=== PATIENT | female | born 1980 | race Caucasian/White ===

== ENCOUNTER 2016-09-07 09:20 | Emergency (ER) | payer OTHER ==
[2016-09-07] MEDS ORDERED: NORMAL SALINE 10 ML SYRINGE FLUSH IVP PRN (09:33)
[2016-09-07] MEDS ORDERED: KETOROLAC 15 MG/1 ML VIAL IVP ONE (09:33)
[2016-09-07] MEDS ORDERED: DEXAMETHASONE SOD PHOSPHATE 4 MG/1 ML VIAL IV ONE (09:33)
[2016-09-07 09:37] VITALS: RESP 18; TEMP 96.7
[2016-09-07] MEDS ORDERED: ONDANSETRON 4 MG/2 ML VIAL IVP ONE (09:38)
--- NOTE | 2016-09-07 09:38 | PDOC ---
Sore Throat/Dental Pain HPI - General Chief Complaint: Sore Throat Stated Complaint: sore throat Date Seen by Provider: 09/07/16 Time Seen by Provider: 09:30 Source: POSITIVE: Patient Exam Limitations: POSITIVE: No limitations Nurse's Notes Reviewed & Considered: Yes - History of Present Illness Initial Comments: Kathy is a 36-year-old female who presents to the emergency department for evaluation of a sore throat. Patient reports her symptoms started on Saturday. She was seen in clinic on Saturday. She had been started on Augmentin after a negative strep test. She reports her symptoms are getting worse. Pain is worse with swallowing. No relieving factors. No radiation. And moderate to severe in overall severity. It has been associated with fevers. Patient reports that her temperature has been up to 102. Patient does get chills and sweats. Positive nausea no vomiting. She has had a minimal cough. She does feel swelling in her throat. Denies abdominal pain. - Patient Home Medications Home Medications: Home Medications Effexor 1 QAM 05/02/10 Amoxicillin/Potassium Clav [Augmentin 875-125 Tablet] 1 tab PO BID #20 tab 09/05 Ketorolac Tromethamine [Toradol] 10 mg PO Q6H PRN #15 tablet 09/07/16 - Patient Allergies Allergies/Adverse Reactions: Allergies Allergy/AdvReac Type Severity Reaction Status Date / Time No Known Allergies Allergy Unverified 09/05/16 14:59 Past Medical History - heen HEENT History: Denies History Cardiovascular History: Denies History Respiratory History: Denies History Gastrointestinal History: Denies History Genitourinary History: Denies History Endocrine History: Denies History Musculoskeletal History: Denies History Neurological History: Denies History Blood Disorders: Denies History Psychiatric History: Depression History of Sexually Transmitted Diseases: No Cancer History: Denies History History of Other Communicable Diseases: No Alcohol Use: None Substance Use Type: None Anesthesia Reactions: No Malignant Hyperthermia: No Significant Family History: No pertinent family hx Past Medical History Reviewed: Reviewed - No Changes ROS - Limitations ROS Limitations: No Limitations Constitution: REPORTS: Chills, Fever Cardiovascular: REPORTS: Denies Cardiac Symptoms Respiratory: REPORTS: Other (Minimal nonproductive cough) Neurological: DENIES: Headache Gastrointestinal: REPORTS: Nausea. DENIES: Abdominal Pain, Vomitting Endocrine: REPORTS: Fatigue Musculoskeletal: REPORTS: Neck Pain ENT: REPORTS: Sore Throat Skin: DENIES: Rash Lympathic: REPORTS: Swollen Glands Sore Throat/Dental Pain Exam - General Appearance General Appearance: REPORTS: Alert, Cooperative - HEENT Head / Face: POSITIVE: Atraumatic Eyes: POSITIVE: Inspection Normal Nose: POSITIVE: Inspection Normal Oropharynx: POSITIVE: Other (Posterior pharynx is erythematous. There is no asymmetry to suggest abscess. She does have exudates.) Neck: POSITIVE: Lymphadenopathy - Respiratory Respiratory: REPORTS: No Respiratory Distress, Breath Sounds Normal, Speaks Full Sentences - Cardiovascular Cardiovascular: REPORTS: Regular Rate and Rhythm, Heart Sounds Normal, Equal Pulses - Abdomen Abdomen: Denies Tenderness: (LUQ) (minimal discomfort to palpation of the left upper quadrant. Difficult to assess spleen size secondary to obesity) - Extremities Additional Extremities Details: No edema in the lower extremities bilaterally. - Skin Skin: REPORTS: Warm, Dry, No Rash - Neurological / Psychological Neurological: POSITIVE: Affect Apporpriate Sore Throat/Dental Progress - Results Reviewed by me Lab Results Reviewed: Yes Lab Results:: Laboratory Results 09/07/16 Range/Units 09:40 Monoscreen Negative (NEG) - Patient's Progress Pain Medication Addressed: POSITIVE: Yes MDM / ED Course: Kathy is a 36-year-old female who presents to the emergency department for evaluation of a sore throat. Her vital signs are unremarkable and examination does demonstrate exudative tonsillitis with anterior submandibular lymphadenopathy. She'll diagnosis includes but is not limited to strep throat, tonsillitis, mononucleosis. There is no examination findings to suggest development of an abscess at this time. Patient's rapid strep was negative. Throat culture has been sent. Patient was treated here with Toradol and dexamethasone. Patient's Monospot was negative here. Throat culture is still pending. On reevaluation she was feeling better. She was given a bolus of normal saline. Given she is still early in her course this may still be mononucleosis. I will have her continue her antibiotics and follow up with her primary care provider. Patient was also given a prescription of Toradol to help with discomfort. Patient Care Time - Estimated PCT Patient Care Time (In Minutes): 25 Vital Signs - Recent Vital Signs Vital Signs: Vital Signs (Last 8 hours) Temp Pulse Resp BP Pulse Ox 09/07/16 09:26 96.7 F L 105 H 18 111/93 93 - VS Reviewed Vital Signs Reviewed: Yes Discharge Clinical Impression: Acute tonsillitis Qualifiers: Pharyngitis/tonsillitis etiology: unspecified etiology Qualifier Code: (J03.90 ) Acute tonsillitis, unspecified Discharge Disposition: Discharged to Home Condition: Good Prescriptions / Orders: Ketorolac Tromethamine [Toradol] 10 mg PO Q6H PRN #15 tablet PRN Reason: Pain Patient Instructions Given at Discharge: Tonsillitis (ED) Additional Instructions: Thank you for coming to the emergency department. Your rapid strep and mono tests were negative. Your culture is still pending. Please continue your antibiotics. Use Toradol as needed to help with pain. Do not take additional ibuprofen with this medication. Please follow-up with your primary provider if not improving in the next few days. Return to the emergency department for any worsening symptoms.
[2016-09-07] MEDS ORDERED: Sodium Chloride 0.9% 1,000 ML ONE (09:42)
[2016-09-07] MEDS ORDERED: ONDANSETRON 4 MG/2 ML VIAL ONE (09:42)
[2016-09-07] MEDS ORDERED: NORMAL SALINE 1000 ML IV SCH (10:00)
== END 2016-09-07 10:30 | disposition home or self-care (01) ==
LOC: ER 09:20
DX: J03.90 Acute tonsillitis, unspecified (principal); R50.9 Fever, unspecified; R05 Cough
CPT/HCPCS: 86308; 87070; 87802; 96374; 96375; 99282; 99283; J1100; J1885; J2405; J7030

== ENCOUNTER 2016-09-10 03:16 | Inpatient (IN) | payer OTHER ==
[2016-09-10] MEDS ORDERED: NORMAL SALINE 10 ML SYRINGE FLUSH IVP PRN (03:34)
[2016-09-10] MEDS ORDERED: KETOROLAC 15 MG/1 ML VIAL IVP ONE (03:34)
[2016-09-10] MEDS ORDERED: Sodium Chloride 0.9% 1,000 ML PRIMARY IV ONE (03:34)
[2016-09-10] MEDS ORDERED: ONDANSETRON 4 MG/2 ML VIAL IVP ONE (03:34)
[2016-09-10] MEDS ORDERED: DEXAMETHASONE PF 10 MG/1 ML VIAL IVP ONE (03:37)
--- NOTE | 2016-09-10 03:46 | PDOC ---
Sore Throat/Dental Pain HPI - General Chief Complaint: Sore Throat Stated Complaint: SEVERE SORE THROAT/SWELLING/PAINFUL SWALLOWING Date Seen by Provider: 09/10/16 Time Seen by Provider: 03:30 Source: POSITIVE: Patient Exam Limitations: POSITIVE: No limitations Nurse's Notes Reviewed & Considered: Yes - History of Present Illness Initial Comments: The patient is a 36-year-old female who presents to the emergency department with worsening sore throat. She states that she developed sore throat about a week ago. She was seen at the walk-in clinic on Saturday and diagnosed with exudative tonsillitis and started on Augmentin. Her strep screen was negative at that time. She did not have any improvement after initiation with antibiotics in her throat seemed to be getting worse so she came to the emergency department on Saturday last week. Repeat strep test was negative and Newberry screen was negative. She received IV fluids as well as IV Toradol and Decadron and was feeling better. She was discharged home on Toradol with continuation of Augmentin. She states over the past couple of days her throat seems to have gotten worse. She is not able to eat or drink much of anything at all secondary to the pain. The Toradol does not seem to be helping at all. She feels like the swelling has gotten worse in her neck. She denies any cough , nausea or vomiting, abdominal pain or any other associated symptoms. She is unsure about fever however has had chills at home. - Patient Home Medications Home Medications: Home Medications Effexor 1 tab PO QAM 05/02/10 Amoxicillin/Potassium Clav [Augmentin 875-125 Tablet] 1 tab PO BID #20 tab 09/05 Ketorolac Tromethamine [Toradol] 10 mg PO Q6H PRN #15 tablet 09/07/16 - Patient Allergies Allergies/Adverse Reactions: Allergies Allergy/AdvReac Type Severity Reaction Status Date / Time No Known Allergies Allergy Verified 09/10/16 03:21 Past Medical History - heen HEENT History: Denies History Cardiovascular History: Denies History Respiratory History: Denies History Gastrointestinal History: Denies History Genitourinary History: Denies History Endocrine History: Denies History Musculoskeletal History: Denies History Prosthesis or Implant: No Neurological History: Denies History Blood Disorders: Denies History Psychiatric History: Depression History of Sexually Transmitted Diseases: No Female Reproductive History: Denies History Obstetrical History: Denies History Cancer History: Denies History In Past Year Been Physically Harmed or Verbally Threatened: No History of MDRO: No History of Other Communicable Diseases: No Tobacco Use: Former Smoker Alcohol Use: None Substance Use Type: None Previous Surgical History: No Anesthesia Reactions: No Malignant Hyperthermia: No Significant Family History: No pertinent family hx Past Medical History Reviewed: Reviewed - No Changes ROS - Limitations ROS Limitations: No Limitations Constitution: REPORTS: Chills Cardiovascular: REPORTS: Denies Cardiac Symptoms Respiratory: REPORTS: Denies Resp Symptoms Neurological: REPORTS: Denies Neuro Symptoms Gastrointestinal: REPORTS: Denies GI Symptoms Musculoskeletal: REPORTS: Denies MS Symptoms Eyes: REPORTS: Denies Symptoms ENT: REPORTS: Sore Throat, Trouble Swallowing. DENIES: Congestion Skin: REPORTS: Rash (She had a little bit of a rash when her illness first started which seems to have resolved) Sore Throat/Dental Pain Exam - General Appearance General Appearance: REPORTS: Alert, Cooperative, Other (She does appear ill and clinically dehydrated on arrival) - HEENT Head / Face: POSITIVE: No Facial Swelling Eyes: POSITIVE: Inspection Normal Ears: POSITIVE: Ears Normal Inspection Nose: POSITIVE: Inspection Normal Oropharynx: POSITIVE: Other (Examination of the posterior oropharynx reveals tonsils which are enlarged and erythematous, there is white exudates noted on the uvula and tonsils) Neck: POSITIVE: Supple, Other (She does have marked cervical lymphadenopathy bilaterally) - Respiratory Respiratory: REPORTS: No Respiratory Distress, Breath Sounds Normal - Cardiovascular Cardiovascular: REPORTS: Regular Rate and Rhythm, Heart Sounds Normal - Abdomen Abdomen: Soft: (All Quadrants), Denies Tenderness: (All Quadrants), No Distention: (All Quadrants) - Extremities Extremity: Normal ROM: (All Extremities), Normal Inspection: (All Extremities) - Skin Skin: REPORTS: Intact, No Rash - Neurological / Psychological Neurological: POSITIVE: Oriented X3, Motor Normal, Sensation Normal Sore Throat/Dental Progress - Results Reviewed by me Xrays/CTs/US Reviewed by me: Yes Discussed with Radiologist: Yes Radiology Findings: CT soft tissue neck with IV contrast reveals tonsillar enlargement without any evidence of abscess, cervical lymphadenopathy, no other acute findings per radiologist. Lab Results Reviewed: Yes Lab Results:: Laboratory Results 09/10/16 Range/Units 03:54 WBC 5.92 (4.8-10.8) 10^3/uL RBC 4.84 (4.20-5.40) 10^6/uL Hgb 14.9 (12.0-16.0) g/dL Hct 42.8 (37.0-47.0) % MCV 88.4 (81-99) FL MCH 30.8 (27-31) PG MCHC 34.8 (33-37) g/dL RDW Std Deviation 39.8 (39-50) fL RDW Coeff of Doreen 12.4 (11.5-14.5) % Plt Count 252 (140-350) 10*3/uL MPV 9.7 (7.4-12.2) FL Immature Gran % (Auto) 0.2 (0-5) % Neut % (Auto) 47.7 L (50-80) % Lymph % (Auto) 33.4 (10-50) % Newberry % (Auto) 14.5 (5-15) % Eos % (Auto) 1.2 (0-8) % Baso % (Auto) 3.0 H (0-1) % Immature Gran # (Auto) 0.01 10*3/UL Neut # (Auto) 2.82 10*3/UL Lymph # (Auto) 1.98 10*3/uL Newberry # (Auto) 0.86 H (0.3-0.8) 10*3/UL Eos # (Auto) 0.07 10*3/UL Baso # (Auto) 0.18 10*3/UL WBC Morphology Comment Normal morphology (NORM) Plt Morphology Comment Normal morphology (NORM) RBC Morph Comment Normal morphology (NORM) Sodium 135 (135-145) meq/L Potassium 3.4 L (3.8-5.2) meq/L Chloride 99 (98-112) meq/L Carbon Dioxide 24 (23-33) meq/L Anion Gap 12 (5-20) BUN 9 (7-22) mg/dL Creatinine 0.7 (0.50-1.20) mg/dL Estimated GFR > 60 (>60 ml/min/1.73m(2)) BUN/Creatinine Ratio 12.85 (6-20) Glucose 102 (78-110) mg/dL Calculated Osmolality 278.0 (267-292) mOsm/kg Lactic Acid 0.9 (0.70-2.10) MMOL/L Calcium 8.6 L (8.7-10.7) mg/dL Total Bilirubin 0.7 (0.3-1.2) mg/dL AST 24 (8-39) IU/L ALT 26 (9-52) IU/L Alkaline Phosphatase 66 (38-126) IU/L C-Reactive Protein 8.9 H (0.0-0.9) mg/dL Total Protein 7.6 (6.1-8.0) g/dL Albumin 3.9 (3.5-4.8) g/dL Globulin 3.7 (2.50-4.10) g/dL Albumin/Globulin Ratio 1.00 L (1.3-2.0) mg/g Serum HCG, Qual Negative - Patient's Progress MDM / ED Course: Shortly after arrival an IV was established, blood cultures and lactate were obtained with IV start. She received 1 L bolus of normal saline as well as Toradol 15 mg IV, Decadron 8 mg IV, morphine 2 mg IV and Zofran 4 mg IV. She did not really have much pain relief and was given a second dose of morphine. This helped some however her oxygen saturations dropped and she was placed on oxygen. CT soft tissue neck shows enlarged tonsils without any evidence of abscess, associated cervical lymphadenopathy per radiologist. The patient appears to have tonsillitis with associated dehydration. She was given Rocephin 2 g IV. She is still miserable despite medications and fluids here and decision was made to admit for continued treatment and hydration. The patient was in agreement with this plan and Dr. Menard has agreed to admit the patient. - Consult Counseled: POSITIVE: Patient, RE: Lab Results, RE: Radiology Results, RE: DX Patient Care Time - Estimated PCT Patient Care Time (In Minutes): 35 Vital Signs - Recent Vital Signs Vital Signs: Vital Signs (Last 8 hours) Temp Pulse Pulse Resp BP BP BP 09/10/16 07:08 97.8 F 84 18 177/102 09/10/16 07:00 84 09/10/16 06:45 97.0 F 86 18 133/92 09/10/16 03:32 95.5 F L 99 20 147/107 09/10/16 03:23 95.5 F L 99 20 147/107 Pulse Ox 09/10/16 07:08 94 09/10/16 07:00 09/10/16 06:45 96 09/10/16 03:32 94 09/10/16 03:23 94 - VS Reviewed Vital Signs Reviewed: Yes Discharge Clinical Impression: Acute infective tonsillitis, Dehydration Discharge Disposition: Admit to Observation Condition: Fair
[2016-09-10] MEDS: MORPHINE SULFATE 2 MG/1 ML IVP ONE ×2 (03:53→04:48)
[2016-09-10 04:00] LABS: HEMOGLOBIN 14.9 g/dL (12.0-16.0); MEAN CORPUSCULAR HEMOGLOBIN 30.8 PG (27-31); MEAN PLATELET VOLUME 9.7 FL (7.4-12.2); MONOCYTES % (AUTO) 14.5 % (5-15); RED BLOOD COUNT 4.84 10^6/uL (4.20-5.40)
[2016-09-10 04:08] LABS: BLOOD UREA NITROGEN 9 mg/dL (7-22); BUN/CREATININE RATIO 12.85 (6-20); C-REACTIVE PROTEIN 8.9 mg/dL (0.0-0.9); CALCIUM 8.6 mg/dL (8.7-10.7); EST GLOMERULAR FILTRATION > 60 (>60 ml/min/1.73m(2)); SERUM ALBUMIN 3.9 g/dL (3.5-4.8)
[2016-09-10 04:09] LABS: BASOPHILS # (AUTO) 0.18 10*3/UL; EOSINOPHILS # (AUTO) 0.07 10*3/UL; EOSINOPHILS % (AUTO) 1.2 % (0-8); HEMATOCRIT 42.8 % (37.0-47.0); LYMPHOCYTES # (AUTO) 1.98 10*3/uL; MEAN CORPUSCULAR HGB CONC 34.8 g/dL (33-37); MEAN CORPUSCULAR VOLUME 88.4 FL (81-99); MONOCYTES # (AUTO) 0.86 10*3/UL (0.3-0.8); NEUTROPHILS # (AUTO) 2.82 10*3/UL; NEUTROPHILS % (AUTO) 47.7 % (50-80)
[2016-09-10 04:40] LABS: PLATELET MORPHOLOGY COMMENT NORMAL MORPHOLOGY (NORM); RBC MORPHOLOGY COMMENT NORMAL MORPHOLOGY (NORM); WBC MORPHOLOGY COMMENT NORMAL MORPHOLOGY (NORM)
[2016-09-10] MEDS ORDERED: MORPHINE SULFATE 4 MG/1 ML IVP ONE (04:43)
--- NOTE | 2016-09-10 05:22 | DI ---
HISTORY: Sore throat. TECHNIQUE: Contiguous axial images of the soft tissues of the neck were obtained and submitted for i nterpretation. FINDINGS: Bilateral tonsilar enlargement and airway narrowing suggestive of acute tonsillitis. No abs cess. Cervical chain adenopathy. Likely reactive however lymphoproliferative disease can have a similar dereck ology. IMPRESSION: 1. Bilateral tonsilar enlargement and airway narrowing suggestive of acute tonsillitis. No abscess. 2. Cervical chain adenopathy. Likely reactive however lymphoproliferative disease can have a similar etiology.
[2016-09-10] MEDS ORDERED: cefTRIAXone Inj 2 GM in Sodium Chloride 0.9% 100 ML IV ONE (05:49)
[2016-09-10] MEDS ORDERED: LIDOCAINE W/ SODIUM BICARB 0.5 ML SYR SUBD PRN (06:51)
[2016-09-10] MEDS ORDERED: ONDANSETRON 4 MG/2 ML VIAL IVP PRN (06:51)
[2016-09-10] MEDS: NORMAL SALINE 10 ML SYRINGE FLUSH IVP PRN (08:34)
--- NOTE | 2016-09-10 10:02 | PDOC ---
History and Physical - History of Present Illness History of Present Illness: This very nice 36-year-old female who developed some throat discomfort about a week ago with fevers off and on throughout the week. Things got worse with increased swelling of her tonsils and white plaques was started on Augmentin by primary care physician. Things continued to deteriorate where she almost could not swallow anymore and increased pain with decrease the by mouth intake of solids and fluids. Was seen in the ER this morning. Her strep screen was negative and the primary care's office repeat strep test was negative and Ida screen was negative. She received the Decadron and IV Toradol continued to get worse and comes back to the ER. Patient is admitted for dehydration and tonsillitis. Past Medical History Medical History: Depression Tobacco Use: Former Smoker Substance Use Type: None Medication / Allergies Home Medications: Home Medications Medication Instructions Recorded Confirmed Type Effexor 1 tab PO QAM 05/02/10 09/10/16 History Amoxicillin/Potassium Clav 1 tab PO BID #20 tab 09/05/16 09/10/16 Clinic [Augmentin 875-125 Tablet] Ketorolac Tromethamine [Toradol] 10 mg PO Q6H PRN #15 tablet 09/07/16 09/10/16 Rx Allergies/Adverse Reactions: Allergies Allergy/AdvReac Type Severity Reaction Status Date / Time No Known Allergies Allergy Verified 09/10/16 03:21 Review of Systems - Review of Systems All Systems: Reviewed & No Additional Complaints Except as Stated - Mouth/Throat Mouth/Throat Exam: REPORTS: Sore Throat Exam - Vitals Vital Signs: Vital Signs Temperature 97.8 F Temperature Source Temporal Artery Scan Pulse Rate [Pulse Oximeter] 84 Pulse Rate 84 Respiratory Rate 18 Blood Pressure [Right Radial 177/102 Artery] Blood Pressure 133/92 Pulse Ox 94 Oxygen Delivery Method Room Air Height 5 ft 8 in Weight 118.388 kg - General General Appearance: POSITIVE: Mild Distress - Head Head Exam: POSITIVE: Normocephalic, Atraumatic - ENT Additonal ENT Exam Details: Swollen tonsils with white plaque - Neck Neck Exam: POSITIVE: Lymphadenopathy - Respiratory Respiratory Exam: POSITIVE: Clear to Auscultation - Bilaterally, Breathing Non Labored, Normal To Percussion - Cardiovascular Cardiovascular Exam: POSITIVE: RRR, No Murmur, No Clicks, No Gallops - GI/Abdominal GI/Abdominal Exam: POSITIVE: Normal Bowel Sounds, Non Tender, Non Distended, Soft - Extremities Extremities Exam: POSITIVE: No Clubbing Present, No Edema Present, No Cyanosis Present - Neurological Neurological Exam: POSITIVE: Alert, CN II-XII Intact, No Facial Droop, Speech Intact / Clear Results - Labs CBC and BMP: 09/10/16 03:54 09/10/16 03:54 Assessment and Plan - Patient Problems (1) Acute infective tonsillitis Current Visit: Yes Status: Acute Comment: Check serum for Ida no atypical lymphocytes on CBC. Discuss case with you nose and throat at this point recommended Decadron which she received in the ER Medrol Dosepak and IV Unasyn most likely follow-up as outpatient with the ear nose and throat physician. (2) Dehydration Current Visit: Yes Status: Acute Comment: IV fluids with potassium (3) Hypokalemia Current Visit: Yes Status: Acute
[2016-09-10] MEDS: Ampicillin/Sulbactam Inj 3 GM in Sodium Chloride 0.9% 100 ML IV SCH ×3 (11:42→23:16)
[2016-09-10] MEDS: KETOROLAC 15 MG/1 ML VIAL IVP PRN ×2 (11:43→18:31)
[2016-09-11] MEDS: KETOROLAC 15 MG/1 ML VIAL IVP PRN ×3 (00:45→17:34)
[2016-09-11] MEDS: Ampicillin/Sulbactam Inj 3 GM in Sodium Chloride 0.9% 100 ML IV SCH ×4 (04:46→23:23)
[2016-09-11 05:29] LABS: HEMATOCRIT 38.1 % (37.0-47.0); HEMOGLOBIN 13.3 g/dL (12.0-16.0); MEAN CORPUSCULAR HGB CONC 34.9 g/dL (33-37); MEAN CORPUSCULAR VOLUME 88.8 FL (81-99); MEAN PLATELET VOLUME 9.6 FL (7.4-12.2); RED BLOOD COUNT 4.29 10^6/uL (4.20-5.40)
[2016-09-11 05:32] LABS: BLOOD UREA NITROGEN 6 mg/dL (7-22); CALCIUM 8.2 mg/dL (8.7-10.7); EST GLOMERULAR FILTRATION > 60 (>60 ml/min/1.73m(2)); SERUM ALBUMIN 3.3 g/dL (3.5-4.8)
[2016-09-11 05:53] LABS: PLATELET MORPHOLOGY COMMENT NORMAL MORPHOLOGY (NORM); RBC MORPHOLOGY COMMENT NORMAL MORPHOLOGY (NORM); WBC MORPHOLOGY COMMENT NORMAL MORPHOLOGY (NORM)
[2016-09-11 05:54] LABS: BAND NEUTROPHILS % 2 % (0-10); BASOPHILS % (MANUAL) 0 % (0-1); EOSINOPHILS % (MANUAL) 0 % (0-8); LYMPHOCYTES % (MANUAL) 57 % (10-50); MONOCYTES % (MANUAL) 7 % (0-12); NEUTROPHILS % (MANUAL) 34 % (50-80)
[2016-09-11] MEDS ORDERED: METHYLPREDNISOLONE 4 MG TAB DOSE PACK PO SCH (09:00)
[2016-09-11] MEDS: AmLODIPine Tab 5 MG TABLET PO SCH (09:13)
[2016-09-11] MEDS: NORMAL SALINE 10 ML SYRINGE FLUSH IVP PRN ×2 (09:20→17:34)
--- NOTE | 2016-09-11 11:44 | PDOC(PROG) ---
Interval History: Patient is doing a little better swelling is improved still having difficulty with by mouth intake pain and elevated blood pressure denies shortness of breath Objective : Data - Labs CBC and BMP: 09/11/16 04:55 09/11/16 04:55 Labs - Last 24 Hours: Laboratory Results 09/11/16 Range/Units 04:55 WBC 5.51 (4.8-10.8) 10^3/uL RBC 4.29 (4.20-5.40) 10^6/uL Hgb 13.3 (12.0-16.0) g/dL Hct 38.1 (37.0-47.0) % MCV 88.8 (81-99) FL MCH 31.0 (27-31) PG MCHC 34.9 (33-37) g/dL RDW Std Deviation 39.3 (39-50) fL RDW Coeff of Doreen 12.3 (11.5-14.5) % Plt Count 268 (140-350) 10*3/uL MPV 9.6 (7.4-12.2) FL Neutrophils % (Manual) 34 L (50-80) % Band Neutrophils % 2 (0-10) % Lymphocytes % (Manual) 57 H (10-50) % Monocytes % (Manual) 7 (0-12) % Eosinophils % (Manual) 0 (0-8) % Basophils % (Manual) 0 (0-1) % Metamyelocytes % Not Reportable Myelocytes % Not Reportable Promyelocytes % Not Reportable Blast Cells Not Reportable WBC Morphology Comment Normal morphology (NORM) Plt Morphology Comment Normal morphology (NORM) RBC Morph Comment Normal morphology (NORM) Sodium 136 (135-145) meq/L Potassium 3.5 L (3.8-5.2) meq/L Chloride 103 (98-112) meq/L Carbon Dioxide 24 (23-33) meq/L Anion Gap 9 (5-20) BUN 6 L (7-22) mg/dL Creatinine 0.6 (0.50-1.20) mg/dL Estimated GFR > 60 (>60 ml/min/1.73m(2)) BUN/Creatinine Ratio 10.00 (6-20) Glucose 99 (78-110) mg/dL Calculated Osmolality 279.0 (267-292) mOsm/kg Calcium 8.2 L (8.7-10.7) mg/dL Total Bilirubin 0.4 (0.3-1.2) mg/dL AST 20 (8-39) IU/L ALT 23 (9-52) IU/L Alkaline Phosphatase 54 (38-126) IU/L Total Protein 6.7 (6.1-8.0) g/dL Albumin 3.3 L (3.5-4.8) g/dL Globulin 3.4 (2.50-4.10) g/dL Albumin/Globulin Ratio 0.90 L (1.3-2.0) mg/g Objective : Exam - General General Appearance: Cooperative - ENT Additonal ENT Exam Details: Tonsils look less swollen and less plaque less tender on palpation of her submandibular nodes - Respiratory Respiratory Exam: Clear to Auscultation - Bilaterally, Breathing Non Labored, Normal To Percussion - Cardiovascular Cardiovascular Exam: No Murmur, No Clicks, No Gallops Assessment and Plan - Patient Problems (1) Acute infective tonsillitis Current Visit: Yes Status: Acute Comment: Continue Clinda slight improvement decrease in swelling continue also Medrol Dosepak patient is scheduled to go see ENT on in September as an outpatient Dr. Jake gonzalez (2) Dehydration Current Visit: Yes Status: Acute Comment: Resolved (3) Hypokalemia Current Visit: Yes Status: Acute Comment: Continue replacement
[2016-09-11] MEDS: METHYLPREDNISOLONE 4 MG TAB DOSE PACK(DAY 1-3 1730) PO SCH (19:06)
[2016-09-11] MEDS: METHYLPREDNISOLONE 4 MG TAB DOSE PACK(DAY 1-2 2100) PO SCH (21:08)
[2016-09-12] MEDS: NORMAL SALINE 10 ML SYRINGE FLUSH IVP PRN ×2 (00:02→05:32)
[2016-09-12] MEDS: KETOROLAC 15 MG/1 ML VIAL IVP PRN ×5 (00:02→23:19)
[2016-09-12] MEDS: Ampicillin/Sulbactam Inj 3 GM in Sodium Chloride 0.9% 100 ML IV SCH ×4 (04:41→23:18)
[2016-09-12 05:46] LABS: HEMOGLOBIN 14.4 g/dL (12.0-16.0); MEAN CORPUSCULAR HEMOGLOBIN 30.4 PG (27-31); MEAN CORPUSCULAR HGB CONC 34.3 g/dL (33-37); MEAN CORPUSCULAR VOLUME 88.6 FL (81-99); MEAN PLATELET VOLUME 9.8 FL (7.4-12.2); RED BLOOD COUNT 4.74 10^6/uL (4.20-5.40)
[2016-09-12 05:59] LABS: BLOOD UREA NITROGEN 7 mg/dL (7-22); CALCIUM 8.7 mg/dL (8.7-10.7); EST GLOMERULAR FILTRATION > 60 (>60 ml/min/1.73m(2)); SERUM ALBUMIN 3.6 g/dL (3.5-4.8)
[2016-09-12 06:21] LABS: PLATELET MORPHOLOGY COMMENT NORMAL MORPHOLOGY (NORM); RBC MORPHOLOGY COMMENT NORMAL MORPHOLOGY (NORM); WBC MORPHOLOGY COMMENT SEE COMMENTS (NORM)
[2016-09-12 06:24] LABS: BAND NEUTROPHILS % 4 % (0-10); BASOPHILS % (MANUAL) 0 % (0-1); EOSINOPHILS % (MANUAL) 1 % (0-8); LYMPHOCYTES % (MANUAL) 35 % (10-50); MONOCYTES % (MANUAL) 6 % (0-12); NEUTROPHILS % (MANUAL) 54 % (50-80)
--- NOTE | 2016-09-12 09:35 | PDOC(PROG) ---
Interval History: Patient is improving with by mouth fluid and solid intake still painful when going home that she is unable to eat enough or drink. Antibiotics apparently are working very well Objective : Data - Labs CBC and BMP: 09/12/16 04:47 09/12/16 04:47 Labs - Last 24 Hours: Laboratory Results 09/12/16 Range/Units 04:47 WBC 6.71 (4.8-10.8) 10^3/uL RBC 4.74 (4.20-5.40) 10^6/uL Hgb 14.4 (12.0-16.0) g/dL Hct 42.0 (37.0-47.0) % MCV 88.6 (81-99) FL MCH 30.4 (27-31) PG MCHC 34.3 (33-37) g/dL RDW Std Deviation 39.8 (39-50) fL RDW Coeff of Doreen 12.4 (11.5-14.5) % Plt Count 343 (140-350) 10*3/uL MPV 9.8 (7.4-12.2) FL Neutrophils % (Manual) 54 (50-80) % Band Neutrophils % 4 (0-10) % Lymphocytes % (Manual) 35 (10-50) % Monocytes % (Manual) 6 (0-12) % Eosinophils % (Manual) 1 (0-8) % Basophils % (Manual) 0 (0-1) % Metamyelocytes % Not Reportable Myelocytes % Not Reportable Promyelocytes % Not Reportable Blast Cells Not Reportable WBC Morphology Comment See comments (NORM) Plt Morphology Comment Normal morphology (NORM) RBC Morph Comment Normal morphology (NORM) Sodium 139 (135-145) meq/L Potassium 3.8 (3.8-5.2) meq/L Chloride 102 (98-112) meq/L Carbon Dioxide 25 (23-33) meq/L Anion Gap 12 (5-20) BUN 7 (7-22) mg/dL Creatinine 0.7 (0.50-1.20) mg/dL Estimated GFR > 60 (>60 ml/min/1.73m(2)) BUN/Creatinine Ratio 10.00 (6-20) Glucose 108 (78-110) mg/dL Calculated Osmolality 286.0 (267-292) mOsm/kg Calcium 8.7 (8.7-10.7) mg/dL Total Bilirubin 0.4 (0.3-1.2) mg/dL AST 15 (8-39) IU/L ALT 23 (9-52) IU/L Alkaline Phosphatase 58 (38-126) IU/L Total Protein 7.5 (6.1-8.0) g/dL Albumin 3.6 (3.5-4.8) g/dL Globulin 3.9 (2.50-4.10) g/dL Albumin/Globulin Ratio 0.90 L (1.3-2.0) mg/g Objective : Exam - ENT Additonal ENT Exam Details: Tonsils look less swollen and less plaque submandibular lymph nodes are decreased in size overall improving Assessment and Plan - Patient Problems (1) Acute infective tonsillitis Current Visit: Yes Status: Acute Comment: Continue IV antibiotics improvement is present patient still not at full strength for taking by mouth foods and liquids and the solids without the help of pain most likely will need another night she does not feel safe to go home (2) Dehydration Current Visit: Yes Status: Acute Comment: Continue IV fluids and potassium replacement (3) Hypokalemia Current Visit: Yes Status: Acute Comment: Continue replacement
[2016-09-12] MEDS: AmLODIPine Tab 5 MG TABLET PO SCH (09:46)
[2016-09-12] MEDS: METHYLPREDNISOLONE 4 MG TAB DOSE PACK(DAY 2-6 0700) PO SCH (09:46)
[2016-09-12] MEDS ORDERED: METHYLPREDNISOLONE 4 MG TAB DOSE PACK(DAY 1-4 1230) PO SCH (12:00)
[2016-09-12] MEDS: METHYLPREDNISOLONE 4 MG TAB DOSE PACK(DAY 1-3 1730) PO SCH (17:19)
[2016-09-12] MEDS: METHYLPREDNISOLONE 4 MG TAB DOSE PACK(DAY 1-2 2100) PO SCH (20:29)
[2016-09-13] MEDS: Ampicillin/Sulbactam Inj 3 GM in Sodium Chloride 0.9% 100 ML IV SCH (04:53)
[2016-09-13] MEDS: KETOROLAC 15 MG/1 ML VIAL IVP PRN (05:04)
[2016-09-13 07:14] VITALS: RESP 17; TEMP 98.1
[2016-09-13] MEDS: METHYLPREDNISOLONE 4 MG TAB DOSE PACK(DAY 2-6 0700) PO SCH (07:16)
--- NOTE | 2016-09-13 08:03 | DCSUMMARY ---
Hospitalization Summary Hospital Course: Final Discharge Diagnosis: Current Visit Problems Problem Status Priority Diagnosed Code Acute infective tonsillitis Acute J03.90 Dehydration Acute E86.0 Hypokalemia Acute E87.6 Diagnostic Data, Laboratory Data, and Procedures of Signifigance: Laboratory Results 09/10/16 09/10/16 09/11/16 Range/Units 03:34 03:54 04:55 WBC 5.92 5.51 (4.8-10.8) 10^3/uL RBC 4.84 4.29 (4.20-5.40) 10^6/uL Hgb 14.9 13.3 (12.0-16.0) g/dL Hct 42.8 38.1 (37.0-47.0) % MCV 88.4 88.8 (81-99) FL MCH 30.8 31.0 (27-31) PG MCHC 34.8 34.9 (33-37) g/dL RDW Std Deviation 39.8 39.3 (39-50) fL RDW Coeff of Doreen 12.4 12.3 (11.5-14.5) % Plt Count 252 268 (140-350) 10*3/uL MPV 9.7 9.6 (7.4-12.2) FL Immature Gran % (Auto) 0.2 (0-5) % Neut % (Auto) 47.7 L (50-80) % Lymph % (Auto) 33.4 (10-50) % Floyd % (Auto) 14.5 (5-15) % Eos % (Auto) 1.2 (0-8) % Baso % (Auto) 3.0 H (0-1) % Immature Gran # (Auto) 0.01 10*3/UL Neut # (Auto) 2.82 10*3/UL Lymph # (Auto) 1.98 10*3/uL Floyd # (Auto) 0.86 H (0.3-0.8) 10*3/UL Eos # (Auto) 0.07 10*3/UL Baso # (Auto) 0.18 10*3/UL Neutrophils % (Manual) 34 L (50-80) % Band Neutrophils % 2 (0-10) % Lymphocytes % (Manual) 57 H (10-50) % Monocytes % (Manual) 7 (0-12) % Eosinophils % (Manual) 0 (0-8) % Basophils % (Manual) 0 (0-1) % Metamyelocytes % Not Reportable Myelocytes % Not Reportable Promyelocytes % Not Reportable Blast Cells Not Reportable WBC Morphology Comment Normal morphology Normal morphology (NORM) Plt Morphology Comment Normal morphology Normal morphology (NORM) RBC Morph Comment Normal morphology Normal morphology (NORM) Sodium 135 136 (135-145) meq/L Potassium 3.4 L 3.5 L (3.8-5.2) meq/L Chloride 99 103 (98-112) meq/L Carbon Dioxide 24 24 (23-33) meq/L Anion Gap 12 9 (5-20) BUN 9 6 L (7-22) mg/dL Creatinine 0.7 0.6 (0.50-1.20) mg/dL Estimated GFR > 60 > 60 (>60 ml/min/1.73m(2)) BUN/Creatinine Ratio 12.85 10.00 (6-20) Glucose 102 99 (78-110) mg/dL Calculated Osmolality 278.0 279.0 (267-292) mOsm/kg Lactic Acid 0.9 (0.70-2.10) MMOL/L Calcium 8.6 L 8.2 L (8.7-10.7) mg/dL Total Bilirubin 0.7 0.4 (0.3-1.2) mg/dL AST 24 20 (8-39) IU/L ALT 26 23 (9-52) IU/L Alkaline Phosphatase 66 54 (38-126) IU/L C-Reactive Protein 8.9 H (0.0-0.9) mg/dL Total Protein 7.6 6.7 (6.1-8.0) g/dL Albumin 3.9 3.3 L (3.5-4.8) g/dL Globulin 3.7 3.4 (2.50-4.10) g/dL Albumin/Globulin Ratio 1.00 L 0.90 L (1.3-2.0) mg/g Serum HCG, Qual Negative Monoscreen Negative (NEG) 09/12/16 Range/Units 04:47 WBC 6.71 (4.8-10.8) 10^3/uL RBC 4.74 (4.20-5.40) 10^6/uL Hgb 14.4 (12.0-16.0) g/dL Hct 42.0 (37.0-47.0) % MCV 88.6 (81-99) FL MCH 30.4 (27-31) PG MCHC 34.3 (33-37) g/dL RDW Std Deviation 39.8 (39-50) fL RDW Coeff of Doreen 12.4 (11.5-14.5) % Plt Count 343 (140-350) 10*3/uL MPV 9.8 (7.4-12.2) FL Immature Gran % (Auto) (0-5) % Neut % (Auto) (50-80) % Lymph % (Auto) (10-50) % Floyd % (Auto) (5-15) % Eos % (Auto) (0-8) % Baso % (Auto) (0-1) % Immature Gran # (Auto) 10*3/UL Neut # (Auto) 10*3/UL Lymph # (Auto) 10*3/uL Floyd # (Auto) (0.3-0.8) 10*3/UL Eos # (Auto) 10*3/UL Baso # (Auto) 10*3/UL Neutrophils % (Manual) 54 (50-80) % Band Neutrophils % 4 (0-10) % Lymphocytes % (Manual) 35 (10-50) % Monocytes % (Manual) 6 (0-12) % Eosinophils % (Manual) 1 (0-8) % Basophils % (Manual) 0 (0-1) % Metamyelocytes % Not Reportable Myelocytes % Not Reportable Promyelocytes % Not Reportable Blast Cells Not Reportable WBC Morphology Comment See comments (NORM) Plt Morphology Comment Normal morphology (NORM) RBC Morph Comment Normal morphology (NORM) Sodium 139 (135-145) meq/L Potassium 3.8 (3.8-5.2) meq/L Chloride 102 (98-112) meq/L Carbon Dioxide 25 (23-33) meq/L Anion Gap 12 (5-20) BUN 7 (7-22) mg/dL Creatinine 0.7 (0.50-1.20) mg/dL Estimated GFR > 60 (>60 ml/min/1.73m(2)) BUN/Creatinine Ratio 10.00 (6-20) Glucose 108 (78-110) mg/dL Calculated Osmolality 286.0 (267-292) mOsm/kg Lactic Acid (0.70-2.10) MMOL/L Calcium 8.7 (8.7-10.7) mg/dL Total Bilirubin 0.4 (0.3-1.2) mg/dL AST 15 (8-39) IU/L ALT 23 (9-52) IU/L Alkaline Phosphatase 58 (38-126) IU/L C-Reactive Protein (0.0-0.9) mg/dL Total Protein 7.5 (6.1-8.0) g/dL Albumin 3.6 (3.5-4.8) g/dL Globulin 3.9 (2.50-4.10) g/dL Albumin/Globulin Ratio 0.90 L (1.3-2.0) mg/g Serum HCG, Qual Monoscreen (NEG) Microbiology 09/10/16 03:54 Blood Blood Culture - Preliminary NO GROWTH AFTER 48 HOURS 09/10/16 03:54 Blood Blood Culture - Preliminary NO GROWTH AFTER 48 HOURS History and Physical pertinent to Admission: Course of Hospitalization: This very nice 36-year-old female who was admitted for acute tonsillitis with decreased by mouth fluid and solid intake secondary to the pain and swelling. She was initially seen at the primary care office and there she was negative for strep and mono test was given Augmentin things did not improve and was seen in the ER again was reevaluated and admitted with IV antibiotics and steroids. 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 Also she had some elevated readings of her blood pressure we have started first Norvasc 5 which showed a worked some increased the dose to Norvasc 10 daily I gave her a prescription for 30 days and will follow-up with Dr. Damon her primary care physician to make sure her blood pressure is under better control. I will also discussed the case with you no central specialist today on date of discharge will continue Medrol Dosepak and Augmentin for a total of 10 days and go see him and an follow -up appointment. Also her potassium was a replaced and her hydration was complete and her dehydration is resolved On the date of discharge, the patient was examined: Gen.: No acute distress, alert, nontoxic Heart: Regular rate and rhythm, no murmurs, clicks, gallops, or rubs Lungs: Clear to auscultation bilaterally, breathing is nonlabored Abdomen/GI: Normal tones on auscultation, soft, nontender, nondistended Musculoskeletal/extremities: No clubbing, cyanosis, or edema Vitals reviewed and are listed below Vital Signs (24 hrs) Temp Pulse Resp BP Pulse Ox 09/13/16 07:13 98.1 F 77 17 145/103 93 09/13/16 04:49 98.4 F 82 18 141/109 97 09/13/16 01:00 97.4 F 73 18 137/87 92 09/12/16 21:00 97.0 F 94 16 141/97 94 09/12/16 15:49 97.5 F 91 16 138/106 91 09/12/16 12:04 98.6 F 88 16 136/100 97 09/12/16 09:00 97.2 F 93 16 141/111 93 Assessment and Plan: 1. As per discharge assessments above 2. Disposition: Home 3. Condition on discharge, stable and improved. 4. Diet: regular diet 5. Activities: resume normal activities 6. Follow-Up: 1. PCP Dr. Damon 2. Dr. spicer 7. Medications at the Time of Discharge: Home Medications Medication Instructions Recorded Confirmed Type Effexor 1 tab PO QAM 05/02/10 09/10/16 History Amoxicillin/Potassium Clav 1 tab PO BID #20 tab 09/05/16 09/10/16 Clinic [Augmentin 875-125 Tablet] Ketorolac Tromethamine [Toradol] 10 mg PO Q6H PRN #15 tablet 09/07/16 09/10/16 Rx Amlodipine Besylate [Norvasc] 10 mg PO DAILY #30 tablet 09/13/16 Rx methylPREDNISolone Dose Pack 4 mg PO BEDTIME nighat 09/13/16 Rx [Medrol Dose Pack] 8. Time, care, counseling and coordination of care for this discharge is greater than 30 minutes. Exam - Vitals Vital Signs: Vital Signs Temperature 98.1 F Temperature Source Temporal Artery Scan Pulse Rate [Pulse Oximeter] 77 Pulse Rate 96 Respiratory Rate 17 Blood Pressure [Right Radial 146/105 Artery] Blood Pressure [Right Arm] 145/103 Pulse Ox 93 Oxygen Delivery Method Room Air Weight 72.121 kg Patient Problems - Patient Problem List (1) Acute infective tonsillitis Current Visit: Yes Status: Acute (2) Dehydration Current Visit: Yes Status: Acute (3) Hypokalemia Current Visit: Yes Status: Acute
[2016-09-13] MEDS: AmLODIPine Tab 5 MG TABLET PO SCH (08:48)
[2016-09-13] MEDS ORDERED: METHYLPREDNISOLONE 4 MG TAB DOSE PACK(DAY 3-5 2100) PO SCH (21:00)
== END 2016-09-13 10:27 | disposition home or self-care (01) | DRG 153 ==
LOC: ER 03:16 → MED/SURG 06:02 → OBSVTOIN 09-11 06:00
PROVIDERS: ADMIT Internal Medicine; ATTEND Internal Medicine
DX: J03.90 Acute tonsillitis, unspecified (principal); E86.0 Dehydration; E87.6 Hypokalemia
CPT/HCPCS: 36415; 70491; 80053; 83605; 84703; 85007; 85025; 86140; 86308; 87040; 94761; 96361; 96374; 96375; 99284; J0295; J0696; J1100; J1885; J2270; J2405; J7030; J7050

== ENCOUNTER → 2016-09-24 | Outpatient (CLI) | payer BC, OTHER ==
--- NOTE | 2016-09-24 09:44 | DI ---
CT ABDOMEN SCAN WITH IV CONTRAST, 09/24/2016 8:56 AM : Clinical History: Right upper quadrant abdominal pain. Previous Exam: None at this facility. Scans are performed from the lower lung bases through the liver and kidneys with IV contrast. 95 ml o f Isovue 300 was injected IV. No oral or rectal contrast was ordered. The lung bases are clear. The liver is normal. The gallbladder is grossly normal. There is no abnorma lity of the spleen, pancreas, and adrenal glands. Both kidneys are normal in size, shape, position an d contour. There is no hydronephrosis or hydroureter. No renal or ureteral calculi are present. There are no abnormal retrocrural or periaortic nodes. No ascites is present. READING: Normal CT abdomen scan. CT PELVIS SCAN WITH IV CONTRAST, 09/24/2016 8:56 AM: Clinical History: See above. Previous Exam: None at this facility. Scans are performed from just superior to the umbilicus to the symphysis pubis with IV contrast. This is the same bolus of contrast used for the CT scans of the abdomen. Scans through the lower abdomen and pelvis show no masses or abnormal fluid collections. There is no adenopathy. The appendix is normal. The small bowel, terminal ileum, and ileocecal valve are normal. The colon is also normal. There is a small umbilical hernia through which only mesenteric fat has her niated. The uterus and left ovary are normal. There are 2 roughly 15 mm diameter low-density areas in the right ovary consistent with ovarian cysts. READING: There are 2 low-density cystic lesions of the right ovary consistent with ovarian cysts measuring abo ut 15 mm in diameter. Scans of the pelvis are otherwise normal.
== END ==
LOC: CT 08:49
PROVIDERS: ATTEND Family Medicine
DX: R10.11 Right upper quadrant pain (principal); R11.2 Nausea with vomiting, unspecified; N83.201 Unspecified ovarian cyst, right side
CPT/HCPCS: 74177

== ENCOUNTER → 2016-10-04 | Outpatient (CLI) | payer BC, OTHER ==
--- NOTE | 2016-10-08 11:53 | DI ---
Tc-99 HIDA BILIARY SCAN, 10/04/2016 1:08 PM : Clinical History: Right upper quadrant pain. Previous Related Exam: CT scan of the abdomen and pelvis, 09/24/2016. Prior to performing the study, the patient was given a preparatory meal which produced right upper qu adrant pain with nausea. The patient was injected with 6.5 mCi of Tc-99 Choletec, a HIDA compound. An anterior dynamic flow study was performed followed by sequential anterior imaging at one minute inte rvals out to 60 minutes. There is no discernible activity in the gallbladder at [address] Review of the CT scan shows that the gallbladder fossa lies lateral to the duodenum in the AP projection. Loretta yed films up to 2 hours do not show the gallbladder. There is some retained activity probably in the duodenal bulb. Reading: Non-visualization of the gallbladder at 2 hours. Absence of the gallbladder can be seen either with c hronic or acute cholecystitis.
== END ==
LOC: NM 13:06
PROVIDERS: ATTEND Family Medicine
DX: R10.11 Right upper quadrant pain (principal); R11.0 Nausea; F17.200 Nicotine dependence, unspecified, uncomplicated
CPT/HCPCS: 78227; A9537

== ENCOUNTER 2016-10-17 07:00 | Day surgery (SDC) | payer OTHER ==
[~2016-10-17 07:00] MED LIST: BUPIVACAINE 0.25% W/ EPI - 10 ML VIAL ONE; Iothalamate Meglumine 30 ML VIAL IV ONE; LIDOCAINE W/ SODIUM BICARB 0.5 ML SYR ONE; Lactated Ringers 1,000 ML PRIMARY IV ONE; Sodium Chloride 0.9% vial 50 ML ONE; ceFAZolin Inj 2gm (Premix) 50 ML IV ONE
[2016-10-17] MEDS ORDERED: fentaNYL Inj 250 MCG/5 ML VIAL ONE (07:03)
[2016-10-17] MEDS ORDERED: MIDAZOLAM 5 MG/1 ML ONE (07:03)
[2016-10-17] MEDS ORDERED: Sodium Chloride 0.9% vial 10 ML ONE (07:10)
[2016-10-17] MEDS ORDERED: ROCURONIUM 10 MG/1 ML - 5 ML VIAL IVP ONE (07:14)
[2016-10-17] MEDS ORDERED: SUCCINYLCHOLINE CHLORIDE 20 MG/1 ML - 10 ML ONE (07:14)
[2016-10-17 07:26] LABS: URINE SPECIFIC GRAVITY - MAN 1.015
[2016-10-17] MEDS ORDERED: ATROPINE SULFATE 0.4 MG/1 ML VIAL IVP PRN (07:29)
[2016-10-17] MEDS ORDERED: NORMAL SALINE 10 ML SYRINGE FLUSH IVP PRN ×2 (07:29→09:42)
[2016-10-17] MEDS ORDERED: fentaNYL Inj 100 MCG/2 ML VIAL IVP PRN (07:29)
[2016-10-17] MEDS ORDERED: Ondansetron ODT Tab 8 MG TAB PO PRN (07:29)
[2016-10-17] MEDS ORDERED: ONDANSETRON 4 MG/2 ML VIAL IVP PRN ×2 (07:29→09:42)
[2016-10-17] MEDS ORDERED: Lactated Ringers 1,000 ML PRIMARY IV SCH ×2 (07:30→09:45)
[2016-10-17 07:45] VITALS: RESP 14
[2016-10-17] MEDS ORDERED: ceFAZolin Inj 3 GM in Sodium Chloride 0.9% 100 ML IV ONE (08:00)
[2016-10-17] MEDS ORDERED: DEXAMETHASONE PF 10 MG/1 ML VIAL ONE (08:22)
[2016-10-17] MEDS ORDERED: KETOROLAC 30 MG/1 ML VIAL ONE (08:23)
[2016-10-17] MEDS ORDERED: ePHEDrine Inj 50 MG/ML AMP ONE (08:32)
[2016-10-17] MEDS ORDERED: PHENYLEPHRINE 10,000 MCG/1 ML VIAL ONE (08:38)
[2016-10-17] MEDS ORDERED: KETAMINE 100 MG/1 ML - 5 ML ONE (08:41)
[2016-10-17] MEDS ORDERED: GLYCOPYRROLATE 0.2 MG/1 ML VIAL ONE (08:53)
[2016-10-17] MEDS ORDERED: NEOSTIGMINE 1 MG/1 ML - 10 ML ONE (08:53)
[2016-10-17] MEDS ORDERED: Lactated Ringers 2,000 ML PRIMARY IV ONE (08:58)
[2016-10-17] MEDS ORDERED: HYDROmorphone 2 MG/1 ML ONE (09:41)
[2016-10-17] MEDS ORDERED: MORPHINE SULFATE 2 MG/1 ML IVP PRN (09:42)
--- NOTE | 2016-10-17 09:42 | GEN.OPNOTE ---
Operative Note Surgery Date: 10/17/16 Preoperative Diagnosis: Chronic cholecystitis, nonvisualization of the gallbladder on HIDA scan. Postoperative Diagnosis: Chronic cholecystitis, cholelithiasis. Procedure: #1 Laparoscopic cholecystectomy with intraoperative cholangiogram. # 2 repair of umbilical hernia. Surgeon: Delta Agudelo MD Hair Designer: Bart Gr MD Anesthesia Provider: Jena Denise CRNA Anesthesia Type: General Estimated Blood Loss (mL): 10 Fluids: 2200 mL of crystalloid. 3 g of IV Ancef at the start of the procedure. 30 mg of IV Toradol at the end of the procedure. Pathology: Specimen to pathology. Indications: See preoperative diagnosis. Findings: Gallbladder with multiple stones. Intraoperative cholangiogram showed a normal sized duct with free flow into the duodenum. The intrahepatic branching was not seen well but we could see dye extending into the hepatic parenchyma. There were no filling defects. The duct was of normal size. Complications: None. Operative Summary: The patient was taken to the operating room and placed on the operating table in the supine position. Following induction of general anesthetic the abdomen was prepped and draped in a sterile fashion. A surgical timeout was done. The infraumbilical region was infiltrated with 1/4% Marcaine with epinephrine. An incision was made. The abdominal wall was elevated. A Veres needle was placed without apparent injury and a pneumoperitoneum was induced. The veres needle was withdrawn. A 10 mm trocar was placed without apparent injury and a laparoscope was inserted. Under direct visualization and following Marcaine injection a 10 mm trocar was placed in the epigastrium and 2x5 mm trochars were placed along the costal margin. The gallbladder was grasped and elevated. Blunt dissection was used to free the cystic duct. A clip was placed along the neck of the gallbladder. A hole was made in the side wall of the cystic duct. A Karolina cholangiocatheter was inserted. Intraoperative cholangiogram was taken and was normal as previously dictated. The Karolina catheter was withdrawn. 2 clips were placed on the distal cystic duct and the duct was divided. The cystic artery was isolated. 2 clips were placed proximally and one distally and the artery was divided. The gallbladder was taken from the hepatic bed using electrocautery. Hemostasis was assured. Appropriate irrigation and suctioning were performed. Final check for hemostasis was made. 5 mL of Marcaine was placed in the gallbladder fossa and 5 over the dome of the liver. The gallbladder was placed in an Endopouch. The laparoscope was moved to the epigastric port. The gallbladder was grasped with a large grasper and brought up to the umbilical trocar site. The fascial defect at the umbilicus was slightly increased in size. This was increased in size to incorporate her umbilical hernia. The fascial edges were cleared of surrounding tissue. The gallbladder was brought out through the trocar site without difficulty. The fascial defect at the umbilicus was closed with a running 0 Vicryl. The umbilicus was reattached to the fascia with 0 Vicryl. A final check for hemostasis was made. The CO2 was burped from the abdominal cavity. The trochars were removed under direct visualization. No other trocar sites required fascial closure. The skin wounds were closed with inverted interrupted or running subcuticular 4-0 Monocryl followed by Mastisol Steri- Strips and an appropriate dressing. Patient tolerated the procedure well without complication. Patient was taken to the recovery room in stable condition. All counts were correct.
[2016-10-17] MEDS: HYDROmorphone 2 MG/1 ML IVP PRN ×2 (09:44→09:48)
[2016-10-17] MEDS ORDERED: HYDROcodone-APAP 5 MG -325 MG TABLET PO ONE ×2 (10:03→10:33)
[2016-10-17] MEDS: HYDROcodone-APAP 5 MG -325 MG TABLET PO PRN ×2 (10:04→10:34)
--- NOTE | 2016-10-17 11:25 | DI ---
XR CHOLANGIOGRAM INTRAOP,10/17/2016 8:00 AM: Clinical History: Chronic cholecystitis Previous Exam: None at this facility. Findings: 5 views of an intraoperative cholangiogram are obtained, and demonstrate no evidence of filling defec t. The common bile duct is normal. There is free flow of contrast into the second portion of the duod enum. Left and right hepatic ducts appear normal. Skeletal structures are unremarkable. Surgical clips are seen over the cystic duct. Impression: Normal postoperative cholangiogram.
[2016-10-17 11:37] VITALS: TEMP 97.6
== END 2016-10-17 11:20 | disposition home or self-care (01) ==
LOC: SDSC 07:00
PROVIDERS: ATTEND Surgery
DX: K81.1 Chronic cholecystitis (principal); K80.10 Calculus of gallbladder with chronic cholecystitis without obstruction; K42.9 Umbilical hernia without obstruction or gangrene
CPT/HCPCS: 47563; 49652; 74300; 84703; A4216; J0690; J1100; J1170; J1885; J2250; J2370; J2704; J2710; J3010; Q9961; J0330; J7050; J7120